=== PATIENT | male | born 1965 | race Caucasian/White ===

== ENCOUNTER 2023-04-21 07:22 | Outpatient (OUT) | payer OTHER, SELFPAY ==
--- NOTE | 2023-04-21 07:25 | XR_ITS ---
[address] [address] Patient Name: MARIS TILLMAN MRN: [id number] date: 1965 Sex: M Assigned Patient Location: LAB Current Patient Location: LAB Accession/Order Number: [id number] Exam Date: 04/21/2023 07:30 Report Date: 04/21/2023 07:51 At the request of: SHAIKH DELIA Procedure: XR hip JASMYN EXAMINATION: XR hip JASMYN HISTORY: Bilateral Hip Pain COMPARISON: No relevant comparison available. FINDINGS: RIGHT FINDINGS: BONES: Normal. No significant arthropathy or acute abnormality. SOFT TISSUES: Negative. No visible soft tissue swelling. OTHER: Negative. LEFT FINDINGS: BONES: Normal. No significant arthropathy or acute abnormality. SOFT TISSUES: Negative. No visible soft tissue swelling. OTHER: Negative. XR/XR hip JASMYN IMPRESSION: RIGHT CONCLUSION: Normal LEFT CONCLUSION: Normal Electronically authenticated by: ANTONELLA PALUMBO Date: 04/21/2023 07:51
== END 2023-04-21 07:23 | disposition home or self-care (01) ==
LOC: LAB 07:22
PROVIDERS: PCP Internal Medicine; Visit Provider Internal Medicine
DX: M25.551 Pain in right hip (principal); M25.552 Pain in left hip
CPT/HCPCS: 73522

== ENCOUNTER 2024-04-05 09:33 | Emergency (ER) | payer OTHER, SELFPAY ==
[2024-04-05 09:39] VITALS: BP 136/96; PULSE 70; TEMP 36.6; O2SAT 99; BMI 35.0
--- NOTE | 2024-04-05 09:48 | ED_ITS ---
HPI HPI - General Adult General Chief complaint: Head Injury Stated complaint: FELL, HEAD WOUND Time Seen by Provider: 04/05/24 09:35 Source: patient Mode of arrival: walk-in Limitations: no limitations History of Present Illness HPI narrative: 58-year-old male presents to the emergency department for an injury to his head. He slipped on ice this morning and fell and hit the back of his head causing a small laceration. No LOC or neck pain. No vomiting or any other injury. He is up-to-date on his tetanus status. Related Data Home Medications ?Medication ?Instructions ?Recorded ?Confirmed amlodipine 5 mg tablet 5 mg PO DAILY 04/05/24 04/05/24 atorvastatin 20 mg tablet 20 mg PO DAILY 04/05/24 04/05/24 escitalopram oxalate 10 mg tablet 10 mg PO DAILY 04/05/24 04/05/24 levetiracetam 500 mg tablet 500 mg PO Q12H 04/05/24 04/05/24 losartan 100 1 tab PO DAILY 04/05/24 04/05/24 mg-hydrochlorothiazide 25 mg tablet Allergies Allergy/AdvReac Type Severity Reaction Status Date / Time Penicillins AdvReac Mild Hives Verified 04/05/24 09:37 Opioid HPI Opioid Management Most Recent Opioid Data: No Data to Display Review of Systems ROS Narrative A ten point review of systems is negative except as noted above. Exam Narrative Exam Narrative: Nurses note and vital signs reviewed and patient is not hypoxic. General: The patient appears well and in no apparent distress. Patient is resting comfortably on cart. Skin: Warm, dry, no pallor noted. There is no rash noted. Head: Normocephalic, linear laceration present on the left posterior scalp. The open area is approximately 1-1/2 cm in length Eye: Normal conjunctiva, no drainage Ears, Nose, Mouth, and Throat: oral mucosa is moist. Nares patent. Cardiovascular: Regular Rate and Rhythm Respiratory: Patient is in no distress, no accessory muscle use, lungs are clear to auscultation, no wheezing, rales or rhonchi Back: non-tender, including the C-spine GI: Soft and nontender Musculoskeletal: All joints have full range of motion Neurological: A&O, normal speech Psychiatric: Cooperative Constitutional Vital Signs, click to edit/add: Last Vital Signs Temp 97.8 F 04/05/24 09:39 Pulse 70 04/05/24 09:39 Resp 18 04/05/24 09:39 BP 136/96 H 04/05/24 09:39 Pulse Ox 99 04/05/24 09:39 O2 Del Method Room Air 04/05/24 09:39 Course Vital Signs Vital signs: Vital Signs Temperature 97.8 F 04/05/24 09:39 Pulse Rate 70 04/05/24 09:39 Respiratory Rate 18 04/05/24 09:39 Blood Pressure 136/96 H 04/05/24 09:39 Pulse Oximetry 99 04/05/24 09:39 Oxygen Delivery Method Room Air 04/05/24 09:39 Temperature 97.8 F 04/05/24 09:39 Pulse Rate 70 04/05/24 09:39 Respiratory Rate 18 04/05/24 09:39 Blood Pressure 136/96 H 04/05/24 09:39 Pulse Oximetry 99 04/05/24 09:39 Oxygen Delivery Method Room Air 04/05/24 09:39 Medical Decision Making MDM Narrative Medical decision making narrative: The following procedure was performed by me after topical anesthetic and been applied. Betadine swab was carried out x 3 and 2 jacklyn were placed resulting in good skin reapproximation and no complications. He tolerated the procedure well. Jacklyn to be removed in 10 days. Treatment diagnosis and follow-up were discussed with the patient and his . I have no clinical suspicion of intracranial pathology. Differential Diagnosis Differential Diagnosis: Laceration Discharge Plan Discharge Chief Complaint: Head Injury Clinical Impression: Scalp laceration Patient Disposition: Home, Self-Care Time of Disposition Decision: 10:30 Condition: Good Mode of Transportation: Private Vehicle Prescriptions / Home Meds: No Action amlodipine 5 mg tablet 5 mg PO DAILY atorvastatin 20 mg tablet 20 mg PO DAILY escitalopram oxalate 10 mg tablet 10 mg PO DAILY levetiracetam 500 mg tablet 500 mg PO Q12H losartan-hydrochlorothiazide 100-25 mg tablet 1 tab PO DAILY Print Language: [place] Instructions: Laceration (ED) Additional Instructions: Wolcott to be removed in 10 days. Referrals: Shaikh Rushing MD [Primary Care Provider] - 1 week
--- OUTSIDE RECORDS SUMMARY | 2024-04-05 09:48 | XMS_ITS | CCD ---
Author Organization [facility] Care Team Providers Care Marine Designer Name Role Phone Hortencia Tamez Unavailable Kimberley Prieto Unavailable FAWWAD, RUDD H Primary Care Unavailable MERYL LIND Admitting Unavailable MERYL LIND Attending Unavailable ARYA, DR JOSIAS Rao Consulting Unavailable YANIRA .MERYL Consulting Unavailable FAWWAD, RUDD H Admitting Unavailable FAWWAD, RUDD H Attending Unavailable FAWWAD, RUDD H Primary Care Unavailable FAWWAD, RUDD H Consulting Unavailable FAWWAD, RUDD H Admitting Unavailable FAWWAD, RUDD H Attending Unavailable FAWWAD, RUDD H Primary Care Unavailable FAWWAD, RUDD H Consulting Unavailable Rudy Murguia MD Unavailable LYNNETTE WILLARD Attending Unavailable FAWWAD, RUDD Attending Unavailable FAWWAD, RUDD Attending Unavailable SANDRA OLIVARES Attending Unavailmario Rushing MD, Unavailable Fernando Duenas MD Primary Care Provider [phone] Sandra Olivares NP Unavailable [phone] Allergies Allergy Classification Reported Allergen(s) Allergy Type Date of Onset Reaction(s) Facility (3 sources) penicillAMINE Drug Allergy red hands and burning [facility] Other (2 sources) Penicillins; Translations: [PENICILLINS] Drug allergy (disorder) 02-21-18 [facility] (4 sources) Penicillins Drug Allergy 02-21-18 [facility] (1 source) Penicillin; Translations: [penicillin] Drug Allergy [facility] (4 sources) Penicillins Propensity to adverse reactions 03-22-19 24 [facility] Medications Current Medications Medication Drug Class(es) Dates Sig (Normalized) Sig (Original) [id number] 200 actuat albuterol 0.09 mg/actuat metered dose inhaler (4 sources) beta2-Adrenergic Agonist Start: 01-09-2021 take 2 puff(s) by inhalation four times daily as needed Albuterol Sulfate HFA 108 (90 Base) MCG/ACT 2 puffs Inhalation qid prn Dec, Active ProAir HFA Not-T aking ProAir HFA Activ e amLODIPine 5 mg oral tablet (8 sources) Dihydropyridine Calcium Channel Kaylie Start: 09-08-2023 End: 04-17-2024 take 1 tablet by mouth once daily amLODIPine (Norvasc) 5 MG tablet Indications: Essential hypertension (CMS/HCC) Take 1 tablet (5 mg) by mouth Daily 90 tablet 01/18/2024 04/17/2024 Active amLODIPine Besyl ate 5 MG Oral for 30 Active Aspir-81 (2 sources) Aspir-81 Active atorvastatin 20 mg oral tablet (12 sources) HMG-CoA Reductase Inhibitor Start: End: take 1 tablet by mouth once daily atorvastatin (Lipitor) 20 MG tablet Indications: Hyperlipidemia, unspecified hyperlipidemia type (CMS/HCC) Take 1 tablet (20 mg) by mouth Daily 90 tablet 01/18/2024 04/17/2024 Active Start: 02-19-2020 take 1 tablet by stephanie th once daily at bedtime atorvastatin (LIPITOR) 40 mg tablet Take 40 mg by mouth daily at bedtime. 02/19/2020 Active Atorvastatin Carson cium Active Comment on above: Take 40 mg by mouth daily at bedtime. escitalopram 10 mg oral tablet (7 sources) Serotonin Reuptake Inhibitor Start: 4 take 1 tablet by mouth once daily in the morning escitalopram (Lexapro) 10 MG tablet Indications: ERUM (generalized anxiety disorder) (CMS/HCC) take 1 tablet by mouth every morning 90 tablet 1 08/19/2023 Active Lexapro Active hydroCHLOROthiazide 25 mg / losartan potassium 100 mg oral tablet (5 sources) Thiazide Diuretic, Angiotensin 2 Receptor Kaylie Start: 06-08-2023 End: 07-16-2024 take 1 tablet by mouth once daily losartan-hydroCHLOROthiazide (Hyzaar) 100-25 MG tablet Indications: Essential hypertension (CMS/HCC) Take 1 tablet by mouth Daily 90 tablet 1 01/18/2024 07/16/2024 Active levETIRAcetam 500 mg oral tablet (18 sources) Start: 08-01-2022 End: 10-13-2024 take 1 tablet by mouth in the morning levETIRAcetam (Keppra) 500 MG tablet Take 1 tablet by mouth in the morning and 1 tablet before bedtime. 05/24/2023 Active take 1 tablet by stephanie th every twenty-four hours in the morning levETIRAcetam XR (Keppra XR) 500 MG 24 h r tablet Take 1,000 mg by mouth in the morning. Do not crush, chew, or split.. Active Keppra Active Comment on above: Take 1 tablet by stephanie th twice daily. take 1 tablet by stephanie th twice a day metoprolol tartrate 25 mg oral tablet (4 sources) beta-Adrenergic Kaylie Start: 11-16-2019 take 1 tablet by mouth every twelve hours metoprolol tartrate, short acting, (LOPRESSOR) 25 mg tablet Take 1 tablet by mouth every 12 hours. 180 tablet 11/16/2019 Active Comment on above: Take 1 tablet by stephanie th every 12 hours. predniSONE 20 mg oral tablet (2 sources) Start: 08-10-2022 take 1 tablet by mouth every twelve hours prednisone 20 MG 1 tablet Orally BID for 5 Jul, Active Start: 01-09-2021 take 1 tablet by stephanie th every twelve hours predniSONE 20 MG 1 tablet Orally bid for 5 day(s) Dec, Active sildenafil 50 mg oral tablet (4 sources) Phosphodiesterase 5 Inhibitor take 1 tablet by mouth every twenty-four hours as needed sildenafil (Viagra) 50 MG tablet Take 50 mg by mouth Daily as needed for erectile dysfunction Active ubidecarenone 100 mg / vitamin e 5 unt oral capsule (4 sources) take 1 capsule by mouth once daily coenzyme Q-10 100 MG capsule Take 100 mg by mouth 1 (one) time each day Active Completed/Discontinued Medications Medication Drug Class(es) Dates Sig (Normalized) Sig (Original) aspirin 81 mg oral tablet (1 source) Platelet Aggregation Inhibitor, Nonsteroidal Anti-inflammatory Drug Start: 10-23-2019 take 81 mg by mouth once daily aspirin (ASPIR-81 ORAL) Take 81 mg by mouth once daily. 0 10/23/2019 Active Comment on above: Take 81 mg by mouth once daily. lisinopril 40 mg oral tablet (4 sources) Angiotensin Converting Enzyme Inhibitor Start: 12-12-2017 take 1 tablet by mouth once daily lisinopril (ZESTRIL, PRINIVIL) 40 mg tablet Take 40 mg by mouth once daily. 0 12/12/2017 Active Comment on above: Take 40 mg by mouth once daily. pyridoxine hydrochloride 25 mg oral tablet (5 sources) Start: 02-28-2020 take 1 tablet by mouth once daily pyridoxine, vitamin B6, (VITAMIN B-6) 25 mg tablet Indications: Seizure-like activity (HCC) Take 1 tablet by mouth once daily. 90 tablet 3 02/28/2020 Active take 1 tablet by mouth in the mo rning pyridoxine (Vitamin B-6) 25 MG tablet Take 25 mg by mouth in the morning. Active Comment on above: Take 1 tablet by stephanie th once daily. Problems Active Problems Problem Classification Problem Date Documented Da te Episodic/Chronic Acute bronchitis (3 sources) Acute bronchitis; Translations: [Acute bronchitis] Episodic Anxiety disorders (1 source) Anxiety disorder, unspecified; Translations: [ANXIETY DISORDER UNSPECIFIED] Onset: 06-09-2022 Chronic Asthma (4 sources) Mild intermittent asthma; Translations: [Mild intermittent asthma, uncomplicated] Onset: 04-18-2023 04-18-2023 Chronic Cardiac dysrhythmias (8 sources) Multiple premature ventricular complexes; Translations: [Ventricular premature depolarization] Onset: 11-13-2019 11-17-2019 Chronic Cataract (4 sources) Nuclear senile cataract; Translations: [Age-related nuclear cataract, unspecified eye] Onset: 04-18-2023 04-18-2023 Chronic Disorders of lipid metabolism (7 sources) Hyperlipidemia; Translations: [Hyperlipidemia, unspecified] Onset: 04-18-2023 04-18-2023 Chronic Epilepsy; convulsions (4 sources) Seizure disorder; Translations: [Epilepsy, unspecified, not intractable, without status epilepticus] Onset: 06-08-2023 06-08-2023 Chronic Epilepsy; convulsions (7 sources) Neurological finding; Translations: [Unspecified convulsions] Onset: 11-12-2019 Episodic Essential hypertension (11 sources) Hypertensive disorder; Translations: [Essential (primary) hypertension] Onset: 11-12-2019 11-17-2019 Chronic Hyperplasia of prostate (4 sources) Nocturia due to benign prostatic hypertrophy; Translations: [Benign prostatic hyperplasia with lower urinary tract symptoms] Onset: 05-23-2017 04-18-2023 Chronic Immunizations and screening for infectious disease (4 sources) Contact with and (suspected) exposure to other viral communicable diseases; Translations: [Contact with and (suspected) exposure to other viral communicable diseases] Onset: 01-09-2021 Resolved: 01-09-2021 Episodic Nonspecific chest pain (4 sources) Chest pain, unspecified; Translations: [CHEST PAIN UNSPECIFIED] Onset: 06-08-2022 Episodic Other aftercare (1 source) Other shelter (current) drug therapy; Translations: [OTH REGIONAL ECONOMIC LIAISON CURRENT DRUG THERAPY] Onset: 06-09-2022 Episodic Other male genital disorders (4 sources) Male erectile dysfunction, unspecified; Translations: [Impotence of organic origin] Onset: 05-23-2017 04-18-2023 Chronic Other upper respiratory disease (3 sources) Seasonal allergy; Translations: [Other seasonal allergic rhinitis] Chronic Other upper respiratory infections (6 sources) Acute upper respiratory infection, unspecified; Translations: [Sore throat symptom] Onset: 01-09-2021 Resolved: 01-09-2021 Episodic Residual codes; unclassified (10 sources) Obstructive sleep apnea syndrome; Translations: [Obstructive sleep apnea (adult) (pediatric)] Onset: 11-12-2019 11-17-2019 Chronic Viral infection (1 source) Other viral agents as the cause of diseases classified elsewhere Episodic Past or Other Problems Problem Classification Problem Date Documented Da te Episodic/Chronic Other lower respiratory disease (4 sources) Other forms of dyspnea; Translations: [OTHER FORMS OF DYSPNEA] Onset: 01-19-2022 Episodic Other non-traumatic joint disorders (4 sources) Hip pain; Translations: [Pain in right hip] Onset: 04-18-2023 04-18-2023 Episodic Results Test Name Value Interpretation Reference Range Facility Consultation Noteon 08-20-19 23 Consultation Note [id number] #[id number] Normal [facility] CBC AUTO DIFFon 06-08-2022 BASO # 0.1 103/ul Normal 0.0-0.1 [facility] Comment on above: Performed By: #### C BC #### [facility] [address] [address] [address] Aris Mcdaniel Basophils/100 WBC (Bld) 0.6 % Normal 0.2-2.0 [facility] Comment on above: Performed By: #### C BC #### [facility] [address] [address] [address] Aris Mcdaniel EO # 0.2 103/ul Normal 0.0-0.7 [facility] Comment on above: Performed By: #### C BC #### [facility] [address] [address] [address] Aris Mcdaniel Eosinophils/100 WBC (Bld) 1.3 % Normal 0.9-7.0 [facility] Comment on above: Performed By: #### C BC #### [facility] [address] [address] [address] Aris Mcdaniel Erythrocyte distribution width (RBC) [Ratio] 13.9 % Normal 11.0-15.0 [facility] Comment on above: Performed By: #### C BC #### [facility] [address] [place] [address] Dr. Aris Mcdaniel Hematocrit (Bld) [Volume fraction] 50.1 % Normal 42.0-54.0 [facility] Comment on above: Performed By: #### C BC #### [facility] [address] [address] [address] Aris Mcdaniel Hemoglobin (Bld) [Mass/Vol] 17.6 g/dL Normal 14.0-18.0 [facility] Comment on above: Performed By: #### C BC #### [facility] [address] [address] [address] Aris Mcdaniel IG # 0.11 10e3/ul Critically high 0.00-0.03 [facility] Comment on above: Performed By: #### C BC #### [facility] [address] [place] [address] Dr. Aris Mcdaniel IG % 0.9 % Critically high 0.0-0.5 [facility] Comment on above: Performed By: #### C BC #### [facility] [address] [address] [address] Aris Mcdaniel LYMPH # 3.1 103/ul Normal 1.2-3.8 [facility] Comment on above: Performed By: #### C BC #### [facility] [address] [place] [address] Dr. Aris Mcdaniel Lymphocytes/100 WBC (Bld) 25.5 % Normal 20.5-60.0 [facility] Comment on above: Performed By: #### C BC #### [facility] [address] [place] [address] Dr. Aris Mcdaniel MANUAL DIFF REQ NO Normal [facility] Comment on above: Performed By: #### C BC #### [facility] [address] [place] [address] Dr. Aris Mcdaniel MCH (RBC) [Entitic mass] 30.1 pg Normal 25.9-34.0 [facility] Comment on above: Performed By: #### C BC #### [facility] [address] [place] [address] Dr. Aris Mcdaniel MCHC (RBC) [Mass/Vol] 35.1 g/dL Normal 29.9-35.2 [facility] Comment on above: Performed By: #### C BC #### [facility] [address] [place] [address] Dr. Aris Mcdaniel MCV (RBC) [Entitic vol] 85.8 fL Normal 80.0-94.0 [facility] Comment on above: Performed By: #### C BC #### [facility] [address] [place] [address] Dr. Aris Mcdaniel MONO # 1.4 103/ul Critically high 0.3-0.8 [facility] Comment on above: Performed By: #### C BC #### [facility] [address] [place], [place] [id number] Dr. Aris Mcdaniel Monocytes/100 WBC (Bld) 11.4 % Normal 1.7-12.0 [facility] Comment on above: Performed By: #### C BC #### [facility] [address] [address] [address] Aris Mcdaniel NEUT # 7.2 103/ul Critically high 1.4-6.5 [facility] Comment on above: Performed By: #### C BC #### [facility] [address] [address] [address] Aris Mcdaniel Neutrophils/100 WBC (Bld) 60.3 % Normal 43.0-75.0 [facility] Comment on above: Performed By: #### C BC #### [facility] [address] [place] [address] Dr. Aris Mcdaniel Platelet mean volume (Bld) [Entitic vol] 8.8 fL Critically low 9.5-13.5 [facility] Comment on above: Performed By: #### C BC #### [facility] [address] [place] [address] Dr. Aris Mcdaniel PLT 310 103/ul Normal 150-450 [facility] Comment on above: Performed By: #### C BC #### [facility] [address] [place] [address] Dr. Aris Mcdaniel RBC 5.84 106/ul Normal 4.70-6.10 [facility] Comment on above: Performed By: #### C BC #### [facility] [address] [place] [address] Dr. Aris Mcdaniel WBC 12.0 103/ul Critically high 4.0-11.0 [facility] Comment on above: Performed By: #### C BC #### [facility] [address] [place] [address] Dr. Aris Mcdaniel PROF 14(COMP METB)on 023 Albumin [Mass/Vol] 3.7 g/dL Normal 3.4-5.0 [facility] Comment on above: Performed By: #### C MP, HSTROPN #### [facility] [address] [address] [address] Aris Mcdaniel Albumin/Globulin [Mass ratio] 1.1 {ratio} Normal [facility] Comment on above: Performed By: #### C MP, HSTROPN #### [facility] [address] [address] [address] Aris Mcdaniel ALP [Catalytic activity/Vol] 69 U/L Normal 46-116 [facility] Comment on above: Performed By: #### C MP, HSTROPN #### [facility] [address] [address] [address] Aris Mcdaniel ALT [Catalytic activity/Vol] 55 U/L Normal 16-63 [facility] Comment on above: Performed By: #### C MP, HSTROPN #### [facility] [address] [place] [address] Dr. Aris Mcdaniel Anion gap [Moles/Vol] 9.4 mmol/L Normal [facility] Comment on above: Performed By: #### C MP, HSTROPN #### [facility] [address] [address] [address] Aris Mcdaniel AST [Catalytic activity/Vol] 19 U/L Normal 15-37 [facility] Comment on above: Performed By: #### C ROBERT, HSTROPN #### [facility] [address] [place] [address] Dr. Aris Mcdaniel Bilirubin [Mass/Vol] 0.6 mg/dL Normal 0.2-1.0 [facility] Comment on above: Performed By: #### C MP, HSTROPN #### [facility] [address] [address] [address] Aris Mcdaniel Calcium [Mass/Vol] 9.1 mg/dL Normal 8.5-10.1 [facility] Comment on above: Performed By: #### C MP, HSTROPN #### [facility] [address] [address] [address] Aris Mcdaniel Chloride [Moles/Vol] 105 mmol/L Normal 98-107 [facility] Comment on above: Performed By: #### C MP, HSTROPN #### [facility] [address] [address] [address] Aris Mcdaniel CO2 [Moles/Vol] 29.6 mmol/L Normal 21.0-32.0 [facility] Comment on above: Performed By: #### C MP, HSTROPN #### [facility] [address] [address] [address] Aris Mcdaniel Creatinine [Mass/Vol] 1.14 mg/dL Normal 0.70-1.30 [facility] Comment on above: Performed By: #### C MP, HSTROPN #### [facility] [address] [address] [address] Aris Mcdaniel EGFR-AF BELIZEAN >60 Normal >=60 [facility] Comment on above: Performed By: #### C MP, HSTROPN #### [facility] [address] [address] [address] Aris Mcdaniel EGFR-NON AF BELIZEAN >60 Normal >=60 [facility] Comment on above: Performed By: #### C MP, HSTROPN #### [facility] [address] [address] [address] Aris Mcdaniel Globulin (S) [Mass/Vol] 3.3 g/dL Normal [facility] Comment on above: Performed By: #### C MP, HSTROPN #### [facility] [address] [address] [address] Aris Mcdaniel Glucose [Mass/Vol] 80 mg/dL Normal 74-106 [facility] Comment on above: Performed By: #### C MP, HSTROPN #### [facility] [address] [address] [address] Aris Mcdaniel Potassium [Moles/Vol] 3.0 mmol/L Critically low 3.5-5.1 [facility] Comment on above: Performed By: #### C MP, HSTROPN #### [facility] [address] [address] [address] Aris Mcdaniel Protein [Mass/Vol] 7.0 g/dL Normal 6.4-8.2 [facility] Comment on above: Performed By: #### C MP, HSTROPN #### [facility] [address] [place] [address] Dr. Aris Mcdaniel Sodium [Moles/Vol] 141 mmol/L Normal 136-145 [facility] Comment on above: Performed By: #### C MP, HSTROPN #### [facility] [address] [place] [address] Dr. Aris Mcdaniel Urea nitrogen [Mass/Vol] 18.0 mg/dL Normal 7.0-18.0 [facility] Comment on above: Performed By: #### C MP, HSTROPN #### [facility] [address] [place] [address] Dr. Aris Mcdaniel Urea nitrogen/Creatinine [Mass ratio] 15.8 mg/mg Normal [facility] Comment on above: Performed By: #### C MP, HSTROPN #### [facility] [address] [place] [address] Dr. Aris Mcdaniel PROTIMEon 06-08-2022 INR Coag (PPP) [Relative time] 0.98 {INR} Normal [facility] Comment on above: Performed By: #### P TT, PT #### [facility] [address] [place] [address] Dr. Aris Mcdaniel INR GUIDELINES SEE BELOW Normal [facility] Comment on above: Result Comment: VALERY RED INR: 2.0 - 3.0 CONDITIONS NOT LISTED BELOW 2.5 - 3.5 FOR PROSTHETIC HEART VALVE REPLACEMENT 2.5 - 3.5 RECURRENT THROMBOSIS Performed By: #### P TT, PT #### [facility] [address] [place] [address] Dr. Aris Mcdaniel PT Coag (PPP) [Time] 10.4 s Normal 9.0-11.6 [facility] Comment on above: Performed By: #### P TT, PT #### [facility] [address] [place] [address] Dr. Aris Mcdaniel PTTon 06-08-2022 aPTT Coag (Bld) [Time] 24.9 s Normal 22.3-36.2 [facility] Comment on above: Performed By: #### P TT, PT #### [facility] [address] [place] [address] Dr. Aris Mcdaniel TROPONIN, HIGH SENSITIVITYon 06-08-2022 HSTROP 8.4 pg/mL Normal 4.0-76.1 [facility] Comment on above: Result Comment: CUT- OFF POINTS HAVE BEEN ESTABLISHED BASED ON THE FOURTH UNIVERSAL DEFINITIONS OF MYOCARDIAL INFARCTION. THE UPPER REFERENCE LIMIT (URL) OF TROPONIN, DEFINED THE 99TH PERCENTILE OF cTnI DISTRIBUTION IN A REFERENCE POPULATION, HAS BEEN CONFIRMED THE DECISION THRESHOLD FOR [place] DIAGNOSIS. Performed By: #### C MP, HSTROPN #### [facility] [address] [place] [address] Dr. Aris Mcdaniel XR CHEST 2 Von 06-08-2022 XR CHEST 2 V EXAMINATION: XR CHEST 2 V HISTORY: Chest pain , left arm pain COMPARISON: No relevant comparison available. FINDINGS: LUNGS: No significant pulmonary parenchymal abnormalities. VASCULATURE: No increased pulmonary vasculature. PLEURA: No pneumothorax, effusion, or pleural thickening. CARDIAC: No cardiomegaly or cardiac silhouette abnormality. MEDIASTINUM: No visible mass or adenopathy. BONES: No fracture or visible bone lesion. OTHER: Negative. IMPRESSION: 1. No acute cardiopulmonary process. Electronically authenticated by: JOSIAS KOENIG Date: 2022-06-08 09:34 Normal [facility] COVID Quick Testingon 2021 Result Negative [facility] Other Quick Strepon 12-24-2021 S. pyogenes Org specific cx Ql (Throat) Negative [facility] Other Quick Strep [facility] Other CBC AUTO DIFFon 10-29-2021 BASO # 0.1 103/ul Normal 0.0-0.1 [facility] Comment on above: Performed By: #### C BC #### [facility] [address] [place] [address] Dr. Aris Mcdaniel Basophils/100 WBC (Bld) 0.8 % Normal 0.2-2.0 [facility] Comment on above: Performed By: #### C BC #### [facility] [address] [address] [address] Aris Mcdaniel EO # 0.3 103/ul Normal 0.0-0.7 [facility] Comment on above: Performed By: #### C BC #### [facility] [address] [address] [address] Aris Mcdaniel Eosinophils/100 WBC (Bld) 4.2 % Normal 0.9-7.0 [facility] Comment on above: Performed By: #### C BC #### [facility] [address] [place] [address] Dr. Aris Mcdaniel Erythrocyte distribution width (RBC) [Ratio] 14.0 % Normal 11.0-15.0 [facility] Comment on above: Performed By: #### C BC #### [facility] [address] [place] [address] Dr. Aris Mcdaniel Hematocrit (Bld) [Volume fraction] 46.4 % Normal 42.0-54.0 [facility] Comment on above: Performed By: #### C BC #### [facility] [address] [place] [address] Dr. Aris Mcdaniel Hemoglobin (Bld) [Mass/Vol] 16.1 g/dL Normal 14.0-18.0 [facility] Comment on above: Performed By: #### C BC #### [facility] [address] [place] [address] Dr. Aris Mcdaniel IG # 0.04 10e3/ul Critically high 0.00-0.03 [facility] Comment on above: Performed By: #### C BC #### [facility] [address] [place] [address] Dr. Aris Mcdaniel IG % 0.6 % Critically high 0.0-0.5 [facility] Comment on above: Performed By: #### C BC #### [facility] [address] [place] [address] Dr. Aris Mcdaniel LYMPH # 1.5 103/ul Normal 1.2-3.8 [facility] Comment on above: Performed By: #### C BC #### [facility] [address] [place] [address] Dr. Aris Mcdaniel Lymphocytes/100 WBC (Bld) 20.1 % Critically low 20.5-60.0 [facility] Comment on above: Performed By: #### C BC #### [facility] [address] [place] [address] Dr. Aris Mcdaniel MANUAL DIFF REQ NO Normal [facility] Comment on above: Performed By: #### C BC #### [facility] [address] [place] [address] Dr. Aris Mcdaniel MCH (RBC) [Entitic mass] 30.5 pg Normal 25.9-34.0 [facility] Comment on above: Performed By: #### C BC #### [facility] [address] [place] [address] Dr. Aris Mcdaniel MCHC (RBC) [Mass/Vol] 34.7 g/dL Normal 29.9-35.2 [facility] Comment on above: Performed By: #### C BC #### [facility] [address] [place] [address] Dr. Aris Mcdaniel MCV (RBC) [Entitic vol] 87.9 fL Normal 80.0-94.0 [facility] Comment on above: Performed By: #### C BC #### [facility] [address] [place] [address] Dr. Aris Mcdaniel MONO # 0.8 103/ul Normal 0.3-0.8 [facility] Comment on above: Performed By: #### C BC #### [facility] [address] [place] [address] Dr. Aris Mcdaniel Monocytes/100 WBC (Bld) 11.5 % Normal 1.7-12.0 [facility] Comment on above: Performed By: #### C BC #### [facility] [address] [place] [address] Dr. Aris Mcdaniel NEUT # 4.5 103/ul Normal 1.4-6.5 [facility] Comment on above: Performed By: #### C BC #### [facility] [address] [address] [address] Aris Mcdaniel Neutrophils/100 WBC (Bld) 62.8 % Normal 43.0-75.0 [facility] Comment on above: Performed By: #### C BC #### [facility] [address] [place] [address] Dr. Aris Mcdaniel Platelet mean volume (Bld) [Entitic vol] 9.3 fL Critically low 9.5-13.5 [facility] Comment on above: Performed By: #### C BC #### [facility] [address] [address] [address] Aris Mcdaniel PLT 264 103/ul Normal 150-450 [facility] Comment on above: Performed By: #### C BC #### [facility] [address] [place] [address] Dr. Aris Mcdaniel RBC 5.28 106/ul Normal 4.70-6.10 [facility] Comment on above: Performed By: #### C BC #### [facility] [address] [place] [address] Dr. Aris Mcdaniel WBC 7.2 103/ul Normal 4.0-11.0 [facility] Comment on above: Performed By: #### C BC #### [facility] [address] [place] [address] Dr. Aris Mcdaniel GLYCOHEMOGLOBIN A1Con 2021 ADA RECOMMENDATION SEE BELOW Normal [facility] Comment on above: Result Comment: ADA RECOMMENDED LIMIT 4.0 - 6.0 ADA THERAPEUTIC TARGET < 7.0 ACTION SUGGESTED > 7.0 Performed By: #### A 1C #### [facility] [address] [place] [address] Dr. Aris Mcdaniel Glucose [Mass/Vol] 105 mg/dL Normal [facility] Comment on above: Performed By: #### A 1C #### [facility] [address] [place] [address] Dr. Aris Mcdaniel HbA1c (Bld) [Mass fraction] 5.3 % Normal 4.5-6.2 [facility] Comment on above: Performed By: #### A 1C #### [facility] [address] [address] [address] Aris Mcdaniel LIPID PROFILEon 10-29-2021 CHOL-HDL RATIO NORM SEE BELOW Normal [facility] Comment on above: Result Comment: 3.3 - 4.4 LOW RISK 4.4 - 7.1 AVERAGE RISK 7.1 - 11.0 MODERATE RISK >11.0 HIGH RISK Performed By: #### L IPID, CMP #### [facility] [address] [address] [address] Aris Mcdaniel Cholesterol [Mass/Vol] 124 mg/dL Normal <=200 [facility] Comment on above: Performed By: #### L IPID, CMP #### [facility] [address] [address] [address] Aris Mcdaniel Cholesterol in HDL [Mass/Vol] 41 mg/dL Normal 40-60 [facility] Comment on above: Performed By: #### L IPID, CMP #### [facility] [address] [address] [address] Aris Mcdaniel Cholesterol in LDL [Mass/Vol] 55.0 mg/dL Normal [facility] Comment on above: Performed By: #### L IPID, CMP #### [facility] [address] [address] [address] Aris Mcdaniel Cholesterol.total/Ch olesterol in HDL [Mass ratio] 3.0 {ratio} Normal [facility] Comment on above: Performed By: #### L IPID, CMP #### [facility] [address]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
[2024-04-05] MEDS: LIDOCAINE/EPINEPHRINE/TETRACAINE 3 ML GEL.PF.APP 1.5 ML TOPICAL (09:57)
[2024-04-05 10:47] VITALS: PULSE 89; O2SAT 99
== END 2024-04-05 10:51 | disposition home or self-care (01) ==
PROVIDERS: Emergency Provider Emergency Medicine; PCP Internal Medicine
DX: S01.01XA Laceration without foreign body of scalp, initial encounter (principal); W00.0XXA Fall on same level due to ice and snow, initial encounter
CPT/HCPCS: 12001; 99282